=== PATIENT | female | born 1975 | race Caucasian/White ===

== ENCOUNTER 2022-07-21 21:43 | Emergency (ER) | payer SELFPAY ==
[2022-07-21 21:44] VITALS: BP 140/99; PULSE 116; RESP 15; TEMP 37.2; O2SAT 94; BMI 22.6
--- NOTE | 2022-07-21 22:07 | EDS_ITS ---
HPI History of Present Illness Chief Complaint: Lower Extremity Injury Informant: patient Narrative Narrative: 47-year-old female presents to the emergency room with swelling and redness about the left lower leg. As I walk into the room the patient has a curling iron plugged into the outlet and is doing her hair and painting her nails. She points to her left lower leg and states for 2 days its look like this and then I woke up today and it looked like this. I cannot get her to really tell me what it originally looked like and what was different today. She denies any fever chest pain shortness of breath. She states that she had a pimple on her leg that she popped and wonders if the redness came from that. She denies any new tattoos. The patient denies any drug use but appears to have amphetamine tweaks. When asked why her feet are so dirty and if she has been walking around barefoot she states no she wear shoes at work. The patient states that she sits at a desk at [employer] for work. She then asked if she can go to work tonight. She also would like to have her ears looked at. PFSH PFSH no medical history Allergy/AdvReac Type Severity Reaction Status Date / Time No Known Allergies Allergy Verified 07/21/22 21:48 no surgical history Social History (Updated 07/21/22 @ 22:[address] Gabriel Bhatt, ) Smoking Status: Current every day smoker substance use type: does not use ROS ROS ED Constitutional Constitutional ED: Denies chills or weight loss Eyes Eyes: Denies change in vision or diplopia ENT ENT ED: Denies ear pain, rhinorrhea or sore throat Cardiovascular Cardiovascular: Denies chest pain, orthopnea, palpitations or racing heartbeat Respiratory/Chest Respiratory/Chest: Denies cough, dyspnea or orthopnea Gastrointestinal Gastrointestinal: Denies abdominal pain, diarrhea, nausea or vomiting Genitourinary Genitourinary ED: Denies dysuria, hematuria or urinary frequency Musculoskeletal Musculoskeletal: Reports other Details: Left leg swelling and redness ; Denies arthralgias or myalgias Integumentary Reports rash; Denies abscess Neurologic Neurologic: Denies headache(s) or weakness Psychiatric Psychiatric: Denies anxiety, depression, suicidal ideation or suicidal thoughts Endocrine Endocrinology: Denies polydipsia, polyphagia or polyuria Allergic/Immunologic Allergic/Immunologic ED: Denies mouth swelling, tongue swelling or urticaria EXAM Physical Exam Const Vital Signs: 07/21/22 21:44 Temperature 98.9 F Temperature Source Temporal Pulse Rate 116 H Respiratory Rate 15 Blood Pressure 140/99 H Blood Pressure Mean 112 Pulse Ox 94 Oxygen Delivery Method Room Air Positive well nourished and well developed General Appearance ED: well developed HEENT Reports normocephalic, head/scalp atraumatic and moist mucous membranes Eyes PERRL and EOMs intact bilaterally Neck no lymphadenopathy, supple and no JVD Resp normal respiratory effort and clear to auscultation bilaterally Cardio regular rate, regular rhythm and no murmurs GI normal to inspection, nondistended, normoactive bowel sounds and non-tender Palpation: soft Back/Spine no CVA tenderness and normal ROM Extremity normal to inspection General Extremety ED: Negative for edema General Extremity: Negative for edema Neuro oriented x3 and CN's II-XII intact bilaterally Neuro Narrative: Patient seems hyperalert and cannot control her movements. Motor Exam: strength 5/5 throughout Psych Mood & Affect: Negative for depressed or tearful Skin no wounds Skin Narrative: There is some erythema of the lower left leg starting at about the level of the medial and lateral malleolus and extending cephalad for approximately 4 inches. The calf is soft and nontender. There is some mild edema associated around the erythema. The foot itself is not swollen. The feet are very callused and dirty. She appears to have onychomycosis and is painting her nails as we converse. MDM MDM MDM Narrative Medical decision making narrative: I do not see anything in the ears that the patient wanted me to look at. I think the patient has a cellulitis of her lower left leg and should be started on antibiotics. First dose will be given here in the emergency department. I have asked that she follow-up with her primary care doctor. Discharge Plan Triage Chief Complaint: Lower Extremity Injury ED Provider: Gabriel Bhatt
[2022-07-21] MEDS: Cephalexin 250 MG Capsule 500 MG PO (22:29)
== END 2022-07-21 22:31 | disposition home or self-care (01) ==
PROVIDERS: Emergency Provider Emergency Medicine; PCP Family Medicine; Visit Provider Emergency Medicine
DX: L03.116 Cellulitis of left lower limb (principal); F17.200 Nicotine dependence, unspecified, uncomplicated
CPT/HCPCS: 99283